=== PATIENT | female | born 1995 | race Caucasian/White ===

== ENCOUNTER 2018-02-07 19:22 | Emergency (ER) | payer MEDICAID ==
[2018-02-07 19:27] VITALS: RESP 18; O2SAT 99
--- NOTE | 2018-02-07 20:28 | ED PDOC ---
HPI: Female Pain Time Seen by Provider: 02/07/18 19:36 Chief Complaint (Nursing): Female Genitourinary Chief Complaint (Provider): Female Genitourinary History Per: Patient History/Exam Limitations: no limitations Onset/Duration Of Symptoms: Days ( x 3) Current Symptoms Are (Timing): Still Present Quality Of Discomfort: "Pain" Additional Complaint(s): 22 year old female with no medical history presents to the ED with vaginal pain for 3 days. A dull aching pelvic pressure also began while patient was having intercourse 3 days ago causing her to stop. She was seen at [facility] on January 25 for a regular pap smear and told she might have a yeast infection. A week ago she was told her lab results were negative and she decided to treat herself for a yeast infection anyway. She took one dose of Monistat. Patient experienced burning but considered that it was a side effect of the medication. Also reports vaginal bleeding and discharge 2 days ago that resolved by the next day. PMD: none provided Past Medical History Reviewed: Historical Data, Nursing Documentation, Vital Signs Vital Signs: Last Vital Signs Temp 98.2 F 02/07/18 19:25 Pulse 85 02/07/18 19:25 Resp 18 02/07/18 19:25 BP 153/96 H 02/07/18 19:25 Pulse Ox 99 02/07/18 19:25 - Medical History PMH: No Chronic Diseases - Surgical History Surgical History: No Surg Hx - Family History Family History: States: Unknown Family Hx - Social History Current smoker - smoking cessation education provided: No - Home Medications Home Medications: Ambulatory Orders Medication Instructions Recorded Fluconazole [Diflucan] 150 mg PO ONCE #1 tab 02/07/18 RX: Ibuprofen [Motrin Tab] 600 mg PO Q8 PRN #60 tab 02/07/18 - Allergies Allergies/Adverse Reactions: Allergies Allergy/AdvReac Type Severity Reaction Status Date / Time No Known Allergies Allergy Verified 02/07/18 19:58 Review of Systems ROS Statement: Except As Marked, All Systems Reviewed And Found Negative Genitourinary Female: Positive for: Pelvic Pain (and vaginal pain) Physical Exam - Reviewed Nursing Documentation Reviewed: Yes Vital Signs Reviewed: Yes - Physical Exam Appears: Positive for: No Acute Distress Head Exam: Positive for: ATRAUMATIC, NORMAL INSPECTION, NORMOCEPHALIC Skin: Positive for: Warm, Dry Eye Exam: Positive for: EOMI, PERRL Gastrointestinal/Abdominal: Positive for: Normal Exam, Soft. Negative for: Tenderness, Mass, Distended, Guarding, Rebound Pelvic Exam: Positive for: External Exam Normal, No Cerv. Motion Tender, No Masses, Discharge (scant white clotted thick discharge), Other (vaginal canal tenderness). Negative for: Active Bleeding, Cervicitis, Lesions Back: Positive for: Normal Inspection. Negative for: Decreased ROM Lymphatic: Negative for: Inguinal Node Tenderness Neurologic/Psych: Positive for: Alert - ECG O2 Sat by Pulse Oximetry: 99 (RA) Pulse Ox Interpretation: Normal Medical Decision Making Medical Decision Makin:59 Impression: vaginal and pelvic pain Differential diagnoses include but are not limited to: vaginitis, ovarian cyst, UTI and adverse medication reaction Initial Plan: --Urine --Urine dip --Ibuprofen 600 mg PO --Pelvic US 11p Verbal report from [facility]: Pelvis ultrasound: unremarkable DW pt findings. Pt to have dose of diflucan and repeat in a week. Mandatory gynecology follow up in 1 week as well. Advised to avoid any intercourse until symptoms completely resolve. Scribe Attestation: Documented by Ann Fitch, acting as a scribe for Stacy Jaeger MD Provider Scribe Attestation: All medical record entries made by the Scribe were at my direction and personally dictated by me. I have reviewed the chart and agree that the record accurately reflects my personal performance of the history, physical exam, medical decision making, and the department course for this patient. I have also personally directed, reviewed, and agree with the discharge instructions and disposition. Disposition - Clinical Impression Clinical Impression: Vaginal pain - Disposition Referrals: [facility] [Outside] Pamela Coleman MD [Staff Provider] - Disposition: Routine/Home Disposition Time: 23:00 Condition: STABLE Additional Instructions: PLEASE FOLLOW UP WITH GYNECOLOGY IN A WEEK TO SEE HOW YOU ARE DOING Prescriptions: Fluconazole [Diflucan] 150 mg PO ONCE #1 tab RX: Ibuprofen [Motrin Tab] 600 mg PO Q8 PRN #60 tab PRN Reason: Pain, Moderate (4-7) Instructions: Acute Pelvic Pain (DC), Vaginitis
[2018-02-07] MEDS ORDERED: Fluconazole 150 MG TAB PO STA (23:14)
[2018-02-07 23:25] VITALS: BP 132/83; PULSE 83; TEMP 98.3
--- NOTE | 2018-02-08 10:26 | US ---
Date of service: 02/07/2018 HISTORY: pelvic pain COMPARISON: None available. TECHNIQUE: Transabdominal pelvic ultrasound was performed. FINDINGS: UTERUS: Measures 8.2 x 3.5 x 4.5 cm. Anteverted, normal in size and appearance. No fibroid or other mass lesion seen. ENDOMETRIUM: Measures 9.0 mm in diameter. Normal in appearance. CERVIX: No cervical abnormality identified. RIGHT OVARY: Measures 2.7 x 1.5 x 2.6 cm. No solid mass. Normal flow. LEFT OVARY: Measures 2.3 x 1.6 x 2.3 the cm. No solid mass. Normal flow. FREE FLUID: No significant free fluid noted. OTHER FINDINGS: None. IMPRESSION: Unremarkable pelvic ultrasound. A preliminary report was provided by [employer].
== END 2018-02-07 23:23 | disposition home or self-care (01) ==
LOC: H.ER 19:22
DX: N93.9 Abnormal uterine and vaginal bleeding, unspecified (principal); R10.2 Pelvic and perineal pain